=== PATIENT | male | born 1950 | race Caucasian/White ===

== ENCOUNTER → 2016-11-10 | Outpatient (CLI) | payer MEDICARE, OTHER ==
[~2016-11-10] MED LIST: ACET-2723 PO; AMLO5TAB2 PO; BIOT1TAB6 PO; BUPR300T59 PO; CALMOSEPTINE OINTMENT 3.5 G PACKET TOP ONE; CARB15DR94 EACH EAR; HYDR-3989 PO; LAMO100T12 PO; OMEP20CA10 PO; ONDA4TAB4 PO; PROP10DR2 OP; QUET150T3 PO; QUET25TA PO; QUET25TA73 PO; VITS42.53 TOP
== END ==
LOC: NWCC 09:37
PROVIDERS: ATTEND Surgery
DX: I87.2 Venous insufficiency (chronic) (peripheral) (principal); L97.322 Non-pressure chronic ulcer of left ankle with fat layer exposed; L84 Corns and callosities; R60.0 Localized edema; G62.9 Polyneuropathy, unspecified
CPT/HCPCS: 11043; 11055; 29581; A9270; G0463

== ENCOUNTER → 2016-11-17 | Outpatient (CLI) | payer MEDICARE ==
[~2016-11-17] MED LIST changes: -CALMOSEPTINE OINTMENT 3.5 G PACKET TOP ONE
== END ==
LOC: NWCC 09:03
PROVIDERS: ATTEND Surgery
DX: I87.2 Venous insufficiency (chronic) (peripheral) (principal); L97.322 Non-pressure chronic ulcer of left ankle with fat layer exposed; L84 Corns and callosities; R60.0 Localized edema
CPT/HCPCS: 29581; G0463

== ENCOUNTER → 2016-11-24 | Outpatient (CLI) | payer MEDICARE | LOC: NWCC 08:38 | PROVIDERS: ATTEND Surgery | DX: I87.2 Venous insufficiency (chronic) (peripheral) (principal); L97.322 Non-pressure chronic ulcer of left ankle with fat layer exposed; L84 Corns and callosities; R60.0 Localized edema | CPT/HCPCS: 11042; 29581; G0463 ==

== ENCOUNTER → 2016-11-30 | Outpatient (CLI) | payer MEDICARE ==
[~2016-11-30] MED LIST changes: +CALMOSEPTINE OINTMENT 3.5 G PACKET TOP ONE
== END ==
LOC: NWCC 09:30
PROVIDERS: ATTEND Surgery
DX: I87.2 Venous insufficiency (chronic) (peripheral) (principal); L97.322 Non-pressure chronic ulcer of left ankle with fat layer exposed; L84 Corns and callosities; R60.0 Localized edema
CPT/HCPCS: 29581; A9270; G0463

== ENCOUNTER → 2016-12-08 | Outpatient (CLI) | payer MEDICARE ==
[~2016-12-08] MED LIST changes: -CALMOSEPTINE OINTMENT 3.5 G PACKET TOP ONE
== END ==
LOC: NWCC 08:25
PROVIDERS: ATTEND Surgery
DX: I87.2 Venous insufficiency (chronic) (peripheral) (principal); L97.322 Non-pressure chronic ulcer of left ankle with fat layer exposed; L84 Corns and callosities; R60.0 Localized edema
CPT/HCPCS: 11042; 29581; G0463

== ENCOUNTER → 2016-12-11 | Outpatient (CLI) | payer MEDICARE | LOC: NWCC 09:31 | PROVIDERS: ATTEND Internal Medicine | DX: I87.2 Venous insufficiency (chronic) (peripheral) (principal); L97.322 Non-pressure chronic ulcer of left ankle with fat layer exposed; R60.0 Localized edema; L84 Corns and callosities | CPT/HCPCS: 29581; G0463 ==

== ENCOUNTER → 2016-12-15 | Outpatient (CLI) | payer MEDICARE ==
[~2016-12-15] MED LIST changes: +CALMOSEPTINE OINTMENT 3.5 G PACKET TOP ONE
== END ==
LOC: NWCC 09:03
PROVIDERS: ATTEND Surgery
DX: I87.2 Venous insufficiency (chronic) (peripheral) (principal); L97.322 Non-pressure chronic ulcer of left ankle with fat layer exposed; L84 Corns and callosities; R60.0 Localized edema; B96.89 Other specified bacterial agents as the cause of diseases classified elsewhere; L53.9 Erythematous condition, unspecified
CPT/HCPCS: 11042; 29581; 87070; 87075; 87147; 87186; 87205; A9270; G0463

== ENCOUNTER → 2016-12-19 | Outpatient (CLI) | payer MEDICARE ==
[~2016-12-19] MED LIST changes: -CALMOSEPTINE OINTMENT 3.5 G PACKET TOP ONE
== END ==
LOC: LABN.KB 20:05
PROVIDERS: ATTEND Family Medicine
DX: N39.0 Urinary tract infection, site not specified (principal)
CPT/HCPCS: 87086

== ENCOUNTER → 2016-12-22 | Outpatient (CLI) | payer MEDICARE | LOC: NWCC 09:30 | PROVIDERS: ATTEND Surgery | DX: I87.2 Venous insufficiency (chronic) (peripheral) (principal); L97.322 Non-pressure chronic ulcer of left ankle with fat layer exposed; R60.0 Localized edema; L84 Corns and callosities | CPT/HCPCS: 29581; A6209; G0463 ==